=== PATIENT | male | born 1970 | race Hispanic/Latino ===

== ENCOUNTER 2017-03-10 13:55 | Emergency (ER) | payer SELFPAY ==
[2017-03-10] MEDS ORDERED: Bupivacaine 0.5% 10 ML VIAL ONE (14:12)
[2017-03-10] MEDS ORDERED: Adacel (T-DAP) 0.5 ML VIAL ONE (14:23)
--- NOTE | 2017-03-10 14:55 | RAD ---
LEFT THUMB 3 VIEWS: HISTORY: Left thumb injury. FINDINGS: Soft tissue and osseous laceration extends to the distal tuft of the distal phalanx with comminution of the ossific fragments. No evidence of intraarticular extension. No metallic foreign bodies are apparent. IMPRESSION: Soft tissue and osseous laceration of the left thumb distal tuft. POS: [facility]
== END 2017-03-10 16:21 | disposition home or self-care (01) ==
LOC: NAV ERS 13:55
DX: S62.522A Displaced fracture of distal phalanx of left thumb, initial encounter for closed fracture (principal); S61.112A Laceration without foreign body of left thumb with damage to nail, initial encounter; W31.9XXA Contact with unspecified machinery, initial encounter
CPT/HCPCS: 11760; 90471; 90715; J3490